=== PATIENT | female | born 1990 | race Caucasian/White ===

== ENCOUNTER 2016-04-15 11:08 | Inpatient (IN) | payer OTHER ==
[~2016-04-15 11:08] MED LIST: BRINTELLIX10 M1 PO; FALMINA-28 TAB1 EACH PO; LATISSE5 ML TP; PROPRANOLOL HCL20 M2 PO; TRAZODONE HCL50 M1 PO
[2016-04-15] MEDS ORDERED: NEURONTIN300 M1 PO (11:11)
[2016-04-15 13:06] LABS: BASO % 0.2 % (0-2); EOS % 1.1 % (0-7); EOSINOPHIL ABSOLUTE COUNT 0.1 tho/cmm (0.0-0.7); HCT-HEMATOCRIT 39.5 % (34.0-49.0); HGB-HEMOGLOBIN 13.7 gm/dl (12.0-15.5); IMMATURE GRANULOCYTES ABSOLUTE 0.01 tho/cmm (0-0.03); IMMATURE GRANULOCYTES PERCENT 0.1 % (0-0.3); LYMPH % 42.5 % (20-45); MCHC MEAN CORPUSCULAR HGB CONC 34.7 % (32.0-36.0); MCV (MEAN CELL VOLUME) 83.7 fl (82.0-96.0); MEAN PLATELET VOLUME 9.3 cmc (9.4-12.4); MONO % 7.8 % (0-12); MONOCYTE ABSOLUTE COUNT 0.7 tho/cmm (0.0-1.2); NEUTROPHIL ABSOLUTE COUNT 4.5 tho/cmm (1.6-8.0); NEUTROPHIL-AUTOMATED 4.5 tho/cmm (1.6-8.0); NEUTROPHILS % 48.3 % (40-80); PLATELET COUNT 250 tho/cmm (150-450); RED BLOOD COUNT 4.72 mil/cmm (4.00-5.20); RED CELL DISTRIBUTION WIDTH 12.4 % (12.4-16.4); WHITE BLOOD COUNT 9.4 tho/cmm (4.0-10.0)
[2016-04-15 13:18] LABS: ANION GAP 14 mmol/L (0-20); BLOOD UREA NITROGEN 17 mg/dl (6-24); CALCIUM 8.5 mg/dl (8.5-10.5); CARBON DIOXIDE-VENOUS 24 mmol/L (22-32); CHLORIDE 110 mmol/l (96-110); CREATININE 0.77 mg/dl (0.50-1.10); GLUCOSE 85 mg/dL (70-110); POTASSIUM 3.6 mmol/L (3.7-5.1); SODIUM 144 mmol/L (135-145); eGFR VALUE FOR BLACK >90 mL/Min
[2016-04-15 22:38] LABS: T4 (THYROXINE) 10.3 ug/dl (5.0-12.6)
[2016-04-15 22:44] LABS: TSH-THYROID STIMULATING HORM. 4.79 uIU/ml (0.40-3.80)
[2016-04-16 15:20] LABS: CSF GLUCOSE 80 mg/dl (40-75)
[2016-04-16 15:40] LABS: CSF APPEARANCE CLEAR (CLEAR); CSF COLOR COLORLESS (COLORLESS); CSF TUBE NUMBER CSF TUBE 3
[2016-04-16 16:12] LABS: CSF RBC CT 10 cmm (0); CSF WBC CT 10 cmm (0-10)
[2016-04-16 16:14] LABS: CSF LYMPHOCYTES 88 % (40-80); CSF MONOCYTES 12 % (15-45); CSF NEUTROPHILS 0 % (0-6)
[2016-04-19] MEDS ORDERED: PROTONIX40 M2 PO (11:29)
[2016-04-19] MEDS ORDERED: DELTASONE20 MG PO (11:34)
== END 2016-04-19 12:15 | DRG 60 ==
LOC: EDMED 11:08 → EMR2 16:20 → 5EB 20:20
PROVIDERS: Emergency Medicine; Psychiatry & Neurology Neurology; ADMIT Internal Medicine
PROC: 009U3ZX Drainage of Spinal Canal, Percutaneous Approach, Diagnostic (ICD-10-PCS; principal; 2016-04-16)
DX: G35 Multiple sclerosis (principal); F32.9 Major depressive disorder, single episode, unspecified; G97.1 Other reaction to spinal and lumbar puncture; Y84.4 Aspiration of fluid as the cause of abnormal reaction of the patient, or of later complication, without mention of misadventure at the time of the procedure
CPT/HCPCS: A9577; J2270; J2405; J2930; J3420; J7030; J7050